=== PATIENT | male | born 1990 | race Caucasian/White ===

== ENCOUNTER 2023-05-02 06:33 | Emergency (ER) | payer OTHER, SELFPAY ==
[2023-05-02 06:36] VITALS: BP 120/79; PULSE 62; RESP 19; TEMP 36.1; O2SAT 98; BMI 30.4
--- NOTE | 2023-05-02 06:49 | EKG12_ITS ---
Test Reason : SYNCOPE Blood Pressure : / mmHG Vent. Rate : 056 BPM Atrial Rate : 056 BPM P-R Int : 118 ms QRS Dur : 092 ms QT Int : 414 ms P-R-T Axes : 016 040 030 degrees QTc Int : 399 ms Sinus bradycardia with sinus arrhythmia Otherwise normal ECG Confirmed by Amari Sepulveda ([id number]), avid editor PRABHA FRAZIER ([id number]) on 05/05/2023 8:58:36 AM Referred By: Confirmed By:Amari Sepulveda
--- NOTE | 2023-05-02 06:49 | EX.ED.DYSGE1 ---
HPI History of Present Illness Chief Complaint: Syncope Detail of Chief Complaint: Syncope Informant: patient Narrative Narrative: Patient presents with a syncopal episode this morning. Patient states that he got up to urinate and while urinating started feeling lightheaded and dizzy and thinks he passed out for up to 10 seconds or so. Patient came to and finished urinating and walk to the steps and his bedrooms upstairs. He felt woozy so he sat on the steps and he thinks he may have passed out again for short time. Patient states he had similar episode happened in the past. Denies recent illness. Denies chest pain or shortness of breath. Currently feels great and has no complaints and wants to go home and go to work. PFSH PFSH Medical History no medical history Home Medications multivitamin (Daily Multi-Vitamin tablet) 1 tab PO DAILY 05/02/23 [History Last Taken Unknown] Allergy/AdvReac Type Severity Reaction Status Date / Time No Known Allergies Allergy Verified 05/02/23 07:29 Social History Smoking Status: Current every day smoker tobacco type: cigarettes ROS ROS ED Review of Systems ROS Unobtainable: other Constitutional Constitutional ED: Reports lethargy; Denies chills, fever(s), sweats or weight loss Eyes Eyes: Denies blurry vision, change in vision or diplopia ENT ENT ED: Denies rhinorrhea or sore throat Cardiovascular Cardiovascular: Denies chest pain, orthopnea or racing heartbeat Respiratory/Chest Respiratory/Chest: Denies cough, dyspnea, dyspnea on exertion, orthopnea or sputum Gastrointestinal Gastrointestinal: Denies abdominal pain, diarrhea, nausea or vomiting Genitourinary Genitourinary ED: Denies dysuria, hematuria or urinary frequency Musculoskeletal Musculoskeletal: Denies arthralgias, back pain, myalgias or neck pain Integumentary Denies abscess, Abrasions or rash Neurologic Neurologic: Reports other Details: Syncope ; Denies headache(s) or weakness Psychiatric Psychiatric: Denies anxiety, depression or suicidal thoughts Endocrine Endocrinology: Denies polydipsia, polyphagia or polyuria Hematologic/Lymphatic Hematologic/Lymphatic: Denies easy bleeding, easy bruising or lymphadenopathy Allergic/Immunologic Allergic/Immunologic ED: Denies mouth swelling, tongue swelling or urticaria EXAM Physical Exam Const Vital Signs: 05/02/23 06:36 05/02/23 07:00 05/02/23 07:29 Temperature 96.9 F L 97.2 F L Temperature Source Oral Pulse Rate 62 81 Pulse Rate [Lying] 58 L Pulse Rate [Sitting (for 1 minute prior to obtaining)] 62 Pulse Rate [Standing (for 1 minute prior to obtaining)] 79 Respiratory Rate 19 H 16 Blood Pressure 120/79 111/78 Blood Pressure [Lying] 112/68 Blood Pressure [Sitting (for 1 minute prior to obtaining)] 114/73 Blood Pressure [Standing (for 1 minute prior to obtaining)] 123/81 H Blood Pressure Mean 92 89 Blood Pressure Mean [Lying] 82 Blood Pressure Mean [Sitting (for 1 minute prior to obtaining)] 86 Blood Pressure Mean [Standing (for 1 minute prior to obtaining)] 95 Pulse Ox 98 98 Oxygen Delivery Method Room Air Positive well nourished and well developed General Appearance ED: well developed and NAD HEENT Reports TM's clear and moist mucous membranes normocephalic and atraumatic; Negative for trauma or tenderness Tympanic Membrane ED: Yes TM's clear Eyes PERRL and EOMs intact bilaterally General Eye ED: Negative for pale conjunctiva or scleral icterus Neck no lymphadenopathy, supple and no JVD General: Negative for tenderness Chest Wall inspection of chest normal and palpation of chest normal Chest: Negative for tenderness Resp normal respiratory effort and clear to auscultation bilaterally Effort and Inspection: Negative for respiratory distress or pain with movement Auscultation: Negative for rhonchi, wheezes or diminished lung sounds Cardio regular rate, regular rhythm, S1 normal heart sound, S2 normal heart sound and no murmurs Peripheral Pulses: pulses 2+ throughout GI normal to inspection, nondistended, normoactive bowel sounds, soft to palpation, non-tender, non-distended and no masses Back/Spine no CVA tenderness and no thoracic nor lumbar tenderness Extremity normal to inspection General Extremety ED: Negative for edema General Extremity: Negative for edema Neuro oriented x3, CN's II-XII intact bilaterally, no sensory deficits noted and gait normal Sensorium / Orientation: awake, alert, oriented to person, oriented to place and oriented to time Motor Exam: strength 5/5 throughout and strength abnormal Psych mental status grossly normal Skin no rashes or lesions noted and no wounds MDM MDM MDM Narrative Medical decision making narrative: Patient presents with syncope x 2 likely related to micturition and vasovagal type event. Clinically looks well. Patient will have an IV line established. Orthostatics will be obtained. CBC with differential obtained showed a white count of 4.8 with hemoglobin of 17 and platelet count of 164. Orthostatic vital signs were negative. Chemistries unremarkable. Patient clinically looks well. Will discharge to home. Suspect vasovagal episode related to micturition. Lab Data Attestation: I reviewed the patient's lab results. Labs: Laboratory Results - last 24 hr 05/02/23 06:45 WBC 4.8 RBC 5.04 Hgb 17.4 H Hct 49.3 MCV 97.8 H MCH 34.5 H MCHC 35.3 RDW Std Deviation 42.6 RDW Coeff of Sasha 11.9 Plt Count 164 MPV 9.0 Immature Gran % (Auto) 0.400 Neut % (Auto) 55.0 Lymph % (Auto) 33.0 [place] % (Auto) 9.5 Eos % (Auto) 1.7 Baso % (Auto) 0.4 Absolute Neuts (auto) 2.6 Absolute Lymphs (auto) 1.57 Nucleated RBC % 0 Sodium 140 Potassium 4.3 Chloride 106 Carbon Dioxide 30.0 Anion Gap 4 L BUN 14 Creatinine 1.13 Estim Creat Clear Calc 112.59 Est GFR (MDRD) Af Amer 97 Est GFR (MDRD) Non-Af 80 BUN/Creatinine Ratio 12.4 Glucose 115 H Calcium 9.1 EKG Initial EKG: Attestation: I personally reviewed and interpreted this EKG as follows: Comments: Sinus rhythm with ventricular rate of 56 bpm with no acute ST segment changes Discharge Plan Triage Chief Complaint: Syncope ED Provider: Daisy Pardo Dx/Rx/DC Orders Clinical Impression: Syncope, vasovagal Instructions: ED Fainting, Vagal Reaction Prescriptions: No Action multivitamin [Daily Multi-Vitamin] Tablet 1 tab PO DAILY Primary Care Provider: Care Physician,No Primary Referrals: Dave Cabrera MD [Non-Staff] - 5-7 Days Disposition Disposition: Home, Self Care Discharge Date/Time: 05/02/23 07:30
[2023-05-02 07:00] VITALS: BP 112/68; BP 114/73; BP 123/81; PULSE 58; PULSE 62; PULSE 79
[2023-05-02 07:00] LABS: Absolute Lymphocyte Count 1.57 X10^3/uL (0.83-4.51); Absolute Neutrophil Count 2.6 X10^3/uL (2.0-7.7); Basophil# 0.02 X10^3/uL; Basophil% 0.4 % (0-1); Eosinophil# 0.08 X10^3/uL; Eosinophils% 1.7 % (0-5); Hematocrit 49.3 % (40-54); Hemoglobin 17.4 g/dL (13.0-16.5); Lymphocyte # 1.57 X10^3/ul (0.83-4.51); Mean Corp Hgb Conc 35.3 g/dL (32-36); Mean Corpuscular Hgb 34.5 pg (27.0-32.0); Mean Corpuscular Volume 97.8 fL (80-94); Monocyte# 0.45 X10^3/uL; Monocyte% 9.5 % (0-10); NRBC Flagged by Analyzer 0 % (0-5); Neutrophil # 2.62 X10^3/uL (2.7-7.7); Platelet Count 164 K/mm3 (150-450); RBC Distribution Width CV 11.9 % (11.6-14.6); RBC Distribution Width SD 42.6 fl (35.1-43.9); Red Blood Count 5.04 M/mm3 (4.6-6.2); White Blood Count 4.8 K/mm3 (4.4-11.0)
[2023-05-02] MEDS: 0.9% Normal Saline (1000mL) 1,000 ML 1000 ML IV (07:03)
[2023-05-02 07:13] LABS: Anion Gap 4 (5-15); BUN 14 mg/dL (7-18); BUN/Creat Ratio 12.4 RATIO (10-20); Calcium,Total 9.1 mg/dL (8.5-10.1); Chloride 106 mmol/L (98-107); Creatinine, Serum 1.13 mg/dL (0.70-1.30); EST Glomerular Filtration Rate 80 mL/min (>60); Est Glom Filt Rate - Afr Amer 97 mL/min (>60); Estimated Creatinine Clearance 112.59 ml/min; Glucose 115 mg/dL (74-106); Potassium 4.3 mmol/L (3.5-5.1); Sodium Level 140 mmol/L (136-145)
[2023-05-02 07:29] VITALS: BP 111/78; PULSE 81; RESP 16; TEMP 36.2; O2SAT 98
== END 2023-05-02 07:30 | disposition home or self-care (01) ==
LOC: ED 07:25
PROVIDERS: Emergency Provider Emergency Medicine; Visit Provider Emergency Medicine
DX: R55 Syncope and collapse (principal); F17.210 Nicotine dependence, cigarettes, uncomplicated
CPT/HCPCS: 80048; 85025; 93005; 99283; J7030; A4216

== ENCOUNTER 2024-08-22 13:25 | Emergency (ER) | payer OTHER, SELFPAY ==
[2024-08-22 13:26] VITALS: BP 138/87; PULSE 87; RESP 18; TEMP 36.8; O2SAT 100
--- NOTE | 2024-08-22 13:40 | RAD_ITS ---
PROCEDURE: ELBOW MIN 3 VIEWS 08/22/2024 REASON FOR EXAM: TRAUMA TECHNIQUE: ELBOW MIN 3 VIEWS COMPARISON: None FINDINGS: Bones: No fracture. Joints: Normal alignment. Soft tissues: Soft tissue swelling. Other: RAD/Elbow min 3 Views IMPRESSION: No acute abnormality is seen. Reading Location: [place] [id number]
--- NOTE | 2024-08-22 13:40 | RAD_ITS ---
PROCEDURE: WRIST MIN 3 VIEWS 08/22/2024 REASON FOR EXAM: TRAUMA TECHNIQUE: WRIST MIN 3 VIEWS COMPARISON: None FINDINGS: Bones: Fracture through the midshaft of the radius. Joints: There is widening of the distal radioulnar joint. Soft tissues: Soft tissue swelling. Other: RAD/Wrist min 3 Views IMPRESSION: Widening of the distal radioulnar joint. Fracture through the midshaft of the radius. Soft tissue swelling. Reading Location: [place] [id number]
--- NOTE | 2024-08-22 13:40 | RAD_ITS ---
PROCEDURE: FOREARM 2 VIEWS 08/22/2024 REASON FOR EXAM: INJURY TECHNIQUE: FOREARM 2 VIEWS COMPARISON: None FINDINGS: Bones: Transverse fracture through the midshaft of the radius with overriding of the fracture fragments. Joints: Normal alignment at the wrist and elbow. Soft tissues: Soft tissue swelling. Other: RAD/Forearm 2 Views IMPRESSION: Transverse fracture through the midshaft of the radius with overlapping of the fracture fragments. Soft tissue swelling. Reading Location: [place] [id number]
--- NOTE | 2024-08-22 13:40 | RAD_ITS ---
PROCEDURE: HAND MIN 3 VIEWS 08/22/2024 REASON FOR EXAM: TRAUMA Pain following injury. TECHNIQUE: HAND MIN 3 VIEWS COMPARISON: None FINDINGS: Bones: No fracture. Joints: Normal alignment. Soft tissues: Soft tissues are unremarkable. Other: RAD/Hand Min 3 Views IMPRESSION: NEGATIVE HAND SERIES Reading Location: [place] [id number]
--- NOTE | 2024-08-22 14:22 | CONS.ORTHO ---
HPI Consult Data Date of Consult: 08/22/24 HPI Narrative HPI Narrative: MADAY TRINIDAD, is a 33 M who presents with midshaft radius fracture isolated a large branch fell on it today. Called by the emergency department provider. No signs of or concerns for compartment syndrome or crush injury. Wants to arrange for follow-up. [facility] Medical History (Updated 08/22/24 @ 14:22 by Abilio Sky MD) Fracture of shaft of left radius Home Medications ?Medication ?Instructions ?Recorded ?Last Taken ?Type NK 08/22/24 Unknown History Allergy/AdvReac Type Severity Reaction Status Date / Time No Known Allergies Allergy Verified 08/22/24 13:29 Social History Smoking Status: Current every day smoker tobacco type: cigarettes Vital Signs Vital Signs Vital Signs: 08/22/24 13:26 08/22/24 13:26 Temperature 98.2 F Temperature Source Oral Pulse Rate 87 Respiratory Rate 18 Respiratory Effort Normal Non-Labored Respiratory Depth Normal Respiratory Pattern Normal Blood Pressure 138/87 H Blood Pressure Mean 104 Pulse Ox 100 Oxygen Delivery Method Room Air Weight Weight: 215 lb 9 oz Body Mass Index (BMI) 30.0 Imaging Radiology Impression Elbow X-Ray 08/22/24 13:40 IMPRESSION: No acute abnormality is seen. [facility] Forearm X-Ray 08/22/24 13:40 IMPRESSION: Transverse fracture through the midshaft of the radius with overlapping of the fracture fragments. Soft tissue swelling. Reading Location: [facility] Hand X-Ray 08/22/24 13:40 IMPRESSION: NEGATIVE HAND SERIES Reading Location: [facility] Wrist X-Ray 08/22/24 13:40 IMPRESSION: Widening of the distal radioulnar joint. Fracture through the midshaft of the radius. Soft tissue swelling. Reading Location: [facility] Assessment & Plan Assessment/Plan (1) Fracture of shaft of left radius: PLAN: 33-year-old man isolated midshaft radial shaft fracture. No signs or concern from the emergency department provider for compartment syndrome although the patient has been warned as to the signs of that. Recommend for splinting of the forearm pain control and follow-up with myself in the office within this week or Thursday would be adequate thanks for the consult. I thinkThis injury indicated for ORIF.
--- NOTE | 2024-08-22 15:23 | EDS_ITS ---
HPI History of Present Illness Chief Complaint: Trauma Narrative Narrative: [id number] presents left forearm injury. Injury occurred at work. He states next to a skid vehicle that was moving logs. States this hit a tree which caused the fall hitting directly his left forearm. No other injuries. He is not on any blood thinners. No history of fractures. [facility] Medical History Fracture of shaft of left radius Home Medications ?Medication ?Instructions ?Recorded ?Last Taken ?Type hydrocodone-acetaminophen 5-325mg 1 tab PO Q6H PRN PRN Pain 3 days 08/22/24 Unknown Rx 5mg-325mg #12 TABLETS Allergy/AdvReac Type Severity Reaction Status Date / Time No Known Allergies Allergy Verified 08/22/24 13:29 Social History Smoking Status: Current every day smoker tobacco type: cigarettes ROS ROS ED Constitutional Constitutional ED: Denies fever(s) Cardiovascular Cardiovascular: Denies chest pain Respiratory/Chest Respiratory/Chest: Denies cough Gastrointestinal Gastrointestinal: Denies diarrhea or vomiting Musculoskeletal Musculoskeletal: Reports none and other Details: Left forearm pain. Integumentary Denies rash or wounds Neurologic Neurologic: Denies weakness EXAM Physical Exam Const Vital Signs: 08/22/24 13:26 08/22/24 13:26 Temperature 98.2 F Temperature Source Oral Pulse Rate 87 Respiratory Rate 18 Respiratory Effort Normal Non-Labored Respiratory Depth Normal Respiratory Pattern Normal Blood Pressure 138/87 H Blood Pressure Mean 104 Pulse Ox 100 Oxygen Delivery Method Room Air Positive well nourished and well developed Constitutional Narrative: GCS 15. General Appearance ED: well developed and NAD HEENT Reports moist mucous membranes normocephalic and atraumatic Eyes General Eye ED: Yes normal appearance of both eyes Neck full ROM Chest Wall inspection of chest normal and palpation of chest normal Chest: Negative for tenderness Resp normal respiratory effort and normal air movement Effort and Inspection: symmetric chest movement; Negative for respiratory distress Cardio regular rate, regular rhythm and no murmurs Peripheral Pulses: pulses 2+ throughout GI normal to inspection, nondistended, normoactive bowel sounds and non-tender Palpation: Negative for guarding or rebound tenderness present Extremity Extremity Narrative: Left upper extremity no shoulder or elbow tenderness. There is redness proximal forearm abrasion down the forearm with skin be intact pain to palpation mid to distal radius. No snuffbox tenderness. There is swelling to the hand. No bony tenderness. Soft compartments. General Extremety ED: Yes edema and tenderness General Extremity: edema Neuro oriented x3 and no sensory deficits noted Sensorium / Orientation: awake and alert Skin no rashes or lesions noted and no wounds MDM MDM MDM Narrative Medical decision making narrative: Interventions / MDM: Differential diagnosis: Fracture, contusion Diagnosis considered but do not suspect: No clinical compartment syndrome. My EKG interpretation: N/A Imaging independently reviewed and interpreted by myself: 3 view left elbow: No fracture noted. 2 view left forearm: Comminuted transverse fracture Distal radius with displacement. 3 view left wrist: No fracture. 3 view left hand: No fracture. External documents reviewed: N/A Test considered but not ordered:N/A ED course: Nursing treatment ordered imaging studies. Isolated injury to the forearm. This all reviewed has displaced radius shaft fracture mid to distal radius. Comminuted. No ulnar fracture. Patient declines any pain medicines. Discussed with orthopedist on-call Dr. Sky, fracture area is not reducible. Recommended AP splint. He will call the office tomorrow to be seen for planned surgical intervention. Splinting: Verbal consent. Nylon sleeve was placed, Kerlix padding was placed through the forearm and hand. 4 inch plaster AP splint was placed to the proximal forearm. Secured with Michael wrap. Neurovascularly intact post splinting. Patient continue declined any pain medicines however excepted a prescription for Story to his pharmacy use at night. Discussed signs of compartment syndrome for return otherwise he will call orthopedics for follow-up tomorrow. Sling provided for comfort. All questions were answered. Re-evaluation: stable Disposition discussed with patient/family/significant other: Patient Case discussed with consulting clinician: Orthopedic service. This note was generated with [employer] dictation software. It may contain incorrect words, spelling, and punctuation that were not noted in checking the note before signing. Radiography Diagnostic Testing: Clinical Impression(s) from Imaging Studies Elbow X-Ray 08/22/24 13:40 IMPRESSION: No acute abnormality is seen. Reading Location: [facility] Forearm X-Ray 08/22/24 13:40 IMPRESSION: Transverse fracture through the midshaft of the radius with overlapping of the fracture fragments. Soft tissue swelling. Reading Location: [facility] Hand X-Ray 08/22/24 13:40 IMPRESSION: NEGATIVE HAND SERIES Reading Location: [facility] Wrist X-Ray 08/22/24 13:40 IMPRESSION: Widening of the distal radioulnar joint. Fracture through the midshaft of the radius. Soft tissue swelling. Reading Location: [facility] Discharge Plan Triage Chief Complaint: Trauma ED Provider: Madhu Otriz Dx/Rx/DC Orders Clinical Impression: Fracture of shaft of left radius, Injury of left forearm, Work related injury Instructions: ED Fracture, Upper Extremity Prescriptions: New hydrocodone-acetaminophen 5-325 mg tablet 1 tab PO Q6H PRN PRN (Reason: Pain) 3 Days Qty: 12 0RF Primary Care Provider: Care Physician,No Primary Referrals: Abilio Sky MD [Med Staff - Active Staff] - 1 Day Care Physician,No Primary [Primary Care Provider] - Activity Restrictions/Additional Instructions: Isolated radius fracture. Maintain splint sling for comfort. Discussed with Dr. Sky, call office to be seen tomorrow for planned surgery. If you develop any worsening pain numbness to the hand and fingers, return immediately to the ED for reevaluation. Print Language: Croatian Disposition Disposition: Home, Self Care
[2024-08-22 15:26] VITALS: BP 132/84; PULSE 76; RESP 18; O2SAT 99
[2024-08-22 15:49] VITALS: BP 132/84; PULSE 76; RESP 18; TEMP 36.6; O2SAT 99
== END 2024-08-22 15:49 | disposition home or self-care (01) ==
PROVIDERS: Emergency Provider Emergency Medicine; Visit Provider Emergency Medicine
DX: S52.322A Displaced transverse fracture of shaft of left radius, initial encounter for closed fracture (principal); W20.8XXA Other cause of strike by thrown, projected or falling object, initial encounter; Y99.0 Civilian activity done for income or pay; F17.210 Nicotine dependence, cigarettes, uncomplicated
CPT/HCPCS: 29125; 73080; 73090; 73110; 73130; 99283

== ENCOUNTER 2024-08-30 08:48 | Day surgery (SDC) | payer SELFPAY, OTHER ==
[2024-08-30] VITALS (8 sets, daily range): BP systolic 112–138; BP diastolic 78–92; PULSE 64–81; RESP 16; TEMP 36.2–36.4; O2SAT 93–99; BMI 29.7
--- NOTE | 2024-08-30 09:08 | PRE.ANES_ITS ---
ASA Classification* ASA Classification ASA Classification: 2 Assessment & Plan Anesthesia* Anesthesia Assessment Anesthesia Assessment: Discussed sedation and/or anesthesia options, risks, benefits, and alternatives with patient/parents/legal guardian/POA. Questions invited. The patient/parents/legal guardian/POA seems to understand and agrees to proceed with anesthesia plan. Reviewed the physical assessment, medical history, allergy history and patient home medications list prior to surgery/procedure/anesthetic and documented any changes. Performed airway and anesthesia risk assessments. Anesthesia Type Anesthesia Type: General and Block (Left upper extremity PNB with IV GA) History Source History Obtained from:: Patient Anesthesia Focused Assessment* Airway Assessment Mouth opens: >3 cm Mallampati Score: II Labs Anesthesia Preop lab: CBC WBC 4.8 K/mm3 (4.4-11.0) 05/02/23 06:45 05/02/23 RBC 5.04 M/mm3 (4.6-6.2) 05/02/23 06:45 05/02/23 Hgb 17.4 g/dL (13.0-16.5) H 05/02/23 06:45 4 Hct 49.3 % (40-54) 05/02/23 06:45 05/02/23 Plt Count 164 K/mm3 (150-450) 05/02/23 06:45 05/02/23 CHEMISTRY Potassium 4.3 mmol/L (3.5-5.1) 05/02/23 06:45 05/02/23 Sodium 140 mmol/L (136-145) 05/02/23 06:45 05/02/23 BUN 14 mg/dL (7-18) 05/02/23 06:45 05/02/23 Creatinine 1.13 mg/dL (0.70-1.30) 05/02/23 06:45 05/02/23 Glucose 115 mg/dL (74-106) H 05/02/23 06:45 05/02/23 COAG Pre-Assessment Diagnosis/Proposed Procedure Planned Operative Procedure(s): (L) Left radius open reduction internal fixation Anesthesia 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 When Was Last Pacemaker Check QUESTION #4 FULL TEXT: You/Your Family Experience fever (hyperthermia) with Anesthesia Last Oral Intake Last Oral intake: Last Oral Intake NPO since Meds taken in AM with sips of water? 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 Female No 08/26/24 09:28 HX of Motion Sickness No 08/26/24 09:28 HX of N/V After Surgery No 08/26/24 09:28 Non-Smoker No 08/26/24 09:28 Duration of Surgery greater Yes 08/26/24 09:28 than 60 minutes Number of Risk Factors 1 08/26/24 09:28 PONV Score Low Risk 08/26/24 09:28 Height & Weight Height & Weight: Anesthesia: Height & Weight Height 5 ft 11 in 08/29/24 07:57 Weight: 98.883 kg 08/29/24 07:57 Respiratory Assessment Respiratory Assessment - machinist/machine builder: Respiratory Tract Infection Hx - machinist/machine builder Hx Respiratory Tract Infection No 08/26/24 09:28 STOP Sleep Apnea STOP Sleep Apnea - machinist/machine builder: STOP Sleep Apnea - machinist/machine builder Hx Hypertension No 08/26/24 09:28 Hx Sleep Apnea No 08/26/24 09:28 CPAP BIPAP Do you snore loudly (louder Yes 08/26/24 09:28 than talking or can be heard Do you often feel tired/ No 08/26/24 09:28 fatigued/ sleepy during daytime? Has anyone observed you stop No 08/26/24 09:28 breathing during sleep? STOP Results Negative 08/26/24 09:28 QUESTION #5 FULL TEXT : Do you snore loudly (louder than talking or can be heard through closed doors)? 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 Specify any problems Hx of Preganancy in last 3 N/A 08/26/24 09:28 Months Nurse Filling Out Transfusion MGRIFFITH 08/26/24 09:28 & Questions: Date: 08/26/24 08/26/24 09:28 Time: 08/26/24 09:28 Patient unable to answer at this time (ie. confused, unrespo /Reproduction History /Reproductive History - machinist/machine builder: /Reproductive Hx- machinist/machine builder Hx Now Gestational Age (in weeks): EDC: Hx Hx Para Hx Section SAB Active Medications Active Medications: Current Medications Generic Name Dose Route Start Last Admin Trade Name Freq PRN Reason Stop Dose Admin Lactated Ringer's 1,000 mls @ 15 mls/hr 08/30/24 09:00 IV .Q48H [facility] PFSH Medical History (Updated 08/30/24 @ 00:01 by Corky Langford) Alcohol use Blackout Smoker Leg cramps Fracture of shaft of left radius Home Medications Medication Instructions Recorded Last Taken Type hydrocodone-acetaminophen 5-325mg 1 tab PO Q6H PRN PRN Pain 3 days 08/22/24 Unknown Rx 5mg-325mg #12 TABLETS ibuprofen 200 mg capsule 200 mg PO Q6H PRN pain 08/25 Unknown History multivitamin 1 tab PO DAILY 08/26/24 Unkn own History Allergy/AdvReac Type Severity Reaction Status Date / Time No Known Allergies Allergy Verified 08/26/24 09:26 Surgical History (Updated 08/26/24 @ 09:28 by Calista Holm) No significant past surgical history Social History Smoking Status: Current every day smoker tobacco type: cigarettes Review of Systems (Anesthesia) ROS Narrative System reviewed and no additional complaints, except as documented.
[2024-08-30] MEDS: Lactated Ringers 1,000 ML 15 ML IV (09:28)
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
--- NOTE | 2024-08-30 10:55 | RAD_ITS ---
PROCEDURE: FOREARM 2 VIEWS 08/30/2024 REASON FOR EXAM: LEFT RADIUS OPEN REDUCTION INTERNAL FIXATION TECHNIQUE: FOREARM 2 VIEWS COMPARISON: 08/22/2024 FINDINGS: 2 spot fluoroscopic intraoperative views show the patient undergoing ORIF, for repair of comminuted mid shaft radial fracture. Orthopedic plate and screws are intact. Near anatomic bony alignment. No intraoperative complication noted. RAD/Forearm 2 Views IMPRESSION: Remarkable intraoperative appearance. Reading Location: [facility]
--- NOTE | 2024-08-30 11:59 | PCM.OPRPT ---
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 Programs Manager: Agustín Tasks completed by nurse first aid: Retracting Type of Anesthesia: Block,Regional and General RN Documented Start/Stop Times: Operation Date: 08/30/24 10:30 Case Time Into Pre-Op 08/30/24 08:51 Anesthesia Start 08/30/24 10:56 Into Room 08/30/24 10:56 Procedure Start 08/30/24 11:13 Procedure End 08/30/24 11:58 Procedure Start Time: 11:13 Procedure Stop Time: 11:58 Select all DRAINS/GRAFTS/IMPLANTS that apply: Implanted device Implanted device details: Synthes 8 hole 3.5 mm LCDC plate Estimated Blood Loss: 20 Specimen collected: No Description of surgery: Patient brought to the operating room theater. Placed supine on the table. General anesthesia induced. 2 g IV Ancef administered prior to the start of the procedure. Hand table to the patient's left side. Bed turned to 90 degrees. Tourniquet applied to the upper extremity 18 inch and appropriately padded. All bony prominences padded. SCDs on the legs. Upper extremity prepped and draped in the usual sterile fashion allowing over 3 minutes drying time prior to draping. Preoperative timeout performed to confirm the site patient the surgery. Began by elevating the limb inflating the tourniquet to 250 mmHg. Made a volar incision over the fracture site in the mid forearm overlying the FCR tendon. Carried the dissection down through skin and subcutaneous tissue achieved meticulous hemostasis. Identified the interval between the brachioradialis and the FCR. Identified the radial artery. Carefully ligated crossing vessels. Retracted this laterally. Identified the fracture site elevated the forearm musculature from the forearm at the volar fracture site. Did not have to release the PT. Carefully cleared away any interposed hematoma and fracture periosteum. Achieved a preliminary reduction using direct manipulation and alligator forceps. Chose a Synthes LCDC 3.5 mm plate 8 holes placed this on the volar aspect of the bone. There was butterfly fragment so I was not able to compress across the fracture site. I placed 3 screws 3.5 mm cortical screws 3 screws on each side of the fracture site this achieved good reduction and stable fixation. Bone was out to length appropriately reduced no malrotation. Full rotation of the forearm full flexion extension of the elbow no clicking catching as well as stable distal radial ulnar joint in supination pronation and neutral. I took final AP and lateral radiographs to ensure appropriate placement on the bone of the plate and good reduction of the fracture. Tourniquet let down meticulous hemostasis achieved wound thoroughly irrigated. Subcutaneous tissue closed with 2-0 Vicryl suture and skin with 3-0 Monocryl. Skin cleaned with wet and dry dressing followed application of Steri-Strips Adaptic 4 x 4 gauze ABD dressing and a loosely wrapped Michael bandage. Patient woken up from general anesthetic transferred off the operating room table and taken to postanesthetic care unit in stable condition. All sponge needle and instrument counts were correct no complications plan for the patient discharge home today no heavy lifting beyond 1 pound gentle range of motion of the upper extremity and follow-up in the office in 2 days time leave the dressing on until follow-[place]. [place] [id number] Surgical Findings: As above Complications Complications: No Admit VTE Documentation VTE Present on Admission: No VTE Mechan Device Prophylaxis: SCD's VTE Pharm Prophylaxis ordered?: No Reason prophylaxis not ordered: Treatment Not Indicated
--- NOTE | 2024-08-30 12:08 | DCINST_ITS ---
Discharge Instructions Diet Discharge Diet: No restrictions Activity Ice area for (Minutes): 10 Lifting Restrictions: no lifting over 1 pound 6 weeks Keep extremity elevated above heart level: Operative Extremity Additional Activity Instructions:: ok for gentle ROM of the arm hand and elbow Dressing / Incision Call your doctor if your incision/area has: Continuous Slow Oozing, Sudden Increased Bleeding, Increased Pain/ Swelling, Increased Redness, Foul Smelling Discharge and Swelling at the incision site Call your doctor if you observe: Fever of 101 or Higher, Coldness, Increased Pain and Numbness or Tingling Change Dressing in: leave in place till F/U Cleanse incision/area with: Do not get Incision Wet Follow Up Care Please Follow Up With: Abilio Sky MD When: 2 days Test Results: Test results from this visit will be discussed in further detail at your follow- up appointment, if applicable. Discharge Plan Admission Attending Provider: Abilio Sky Primary Care Provider: Care Physician,No Primary Instructions Patient Instructions: Distal Radius Fx Print Language: Kazakh Discharge Orders/Prescriptions Prescriptions: New oxycodone-acetaminophen [Endocet] 5-325 mg tablet 1 tab PO Q4H MDD 4 PRN (Reason: pain) 3 Days Qty: 20 0RF No Action ibuprofen 200 mg capsule 200 mg PO Q6H PRN (Reason: pain) multivitamin Tablet 1 tab PO DAILY hydrocodone-acetaminophen 5-325 mg tablet 1 tab PO Q6H PRN PRN (Reason: Pain) 3 Days Qty: 12 0RF Referrals / Follow Up: Abilio Sky MD [Med Staff - Active Staff] - Care Physician,No Primary [Primary Care Provider] - Disposition Disposition (needs filled in before D/C Order can be placed): Home, Self Care
--- NOTE | 2024-08-30 12:11 | PCM.POST.ANE ---
Anesthesia: Postop Eval I Current Vital Signs Temperature: 97.3 F Pulse Rate: 81 Blood Pressure: 122/92 Respiratory Rate: 16 Pulse Ox: 94 Assessment Airway patent: Yes Spontaneous unlabored respirations: Yes nausea: No Vomiting: No Anesthesia Complication: No Fluid Hydration Crystalloid volume administer (ml): 1,000 Total IV fluid infused: 1,000 Progress Note Anesthesia document: Postop Eval 1 completed: Yes
--- NOTE | 2024-08-30 12:34 | POSTOPAN2_ITS ---
Anesthesia Postop Eval I Sum Postop Eval Completion status Anesthesia document: Postop Eval 1 completed: Yes Anesthesia Postop Eval I Summary Anesthesia Postop Eval I Summary: Anesthesia Postop Eval I: Assessment Summary Airway patent Yes 08/30/24 12:11 CLINICAL APPEALS SPECIALIST.[email or web address] Spontaneous unlabored Yes 08/30/24 12:11 CLINICAL APPEALS SPECIALIST.TNES respirations Mental status nausea No 08/30/24 12:11 CLINICAL APPEALS SPECIALIST.TNES Vomiting No 08/30/24 12:11 CLINICAL APPEALS SPECIALIST.TNES Anesthesia Postop Eval I: Fluid Summary Crystalloid volume administer 1,000 08/30/24 12:11 CLINICAL APPEALS SPECIALIST.TNES (ml) Colloids volume administered ( ml) Blood Product volume administered (ml) Total IV fluid infused 1,000 08/30/24 12:11 CLINICAL APPEALS SPECIALIST.TNES Anesthesia Postop Eval I: Summary Notes Anesthesia Complication No 08/30/24 12:11 CLINICAL APPEALS SPECIALIST.TNES Anesthesia Complication Comment: Post-operative progress note Anesthesia: Postop Eval II Evaluation Mental status: Awake and Calm Pain Level: 0 nausea: No Vomiting: No Progress Note Post-operative progress note: Excellent analgesia with Left Supraclavicular PNB Complications Anesthesia Complication: No
--- NOTE | 2024-08-30 12:34 | PCM.POSTANE2 ---
Anesthesia Postop Eval I Sum Postop Eval Completion status Anesthesia document: Postop Eval 1 completed: Yes Anesthesia Postop Eval I Summary Anesthesia Postop Eval I Summary: Anesthesia Postop Eval I: Assessment Summary Airway patent Yes 08/30/24 12:11 INPATIENT CODER.TNES Spontaneous unlabored Yes 08/30/24 12:11 INPATIENT CODER.TNES respirations Mental status nausea No 08/30/24 12:11 INPATIENT CODER.TNES Vomiting No 08/30/24 12:11 INPATIENT CODER.TNES Anesthesia Postop Eval I: Fluid Summary Crystalloid volume administer 1,000 08/30/24 12:11 INPATIENT CODER.TNES (ml) Colloids volume administered ( ml) Blood Product volume administered (ml) Total IV fluid infused 1,000 08/30/24 12:11 INPATIENT CODER.TNES Anesthesia Postop Eval I: Summary Notes Anesthesia Complication No 08/30/24 12:11 INPATIENT CODER.TNES Anesthesia Complication Comment: Post-operative progress note Anesthesia: Postop Eval II Evaluation Mental status: Awake and Calm Pain Level: 0 nausea: No Vomiting: No Progress Note Post-operative progress note: Excellent analgesia with Left Supraclavicular PNB Complications Anesthesia Complication: No
== END 2024-08-30 13:14 | disposition home or self-care (01) ==
LOC: SDC 08:49 → AC 08:50
PROVIDERS: Referring Provider Orthopaedic Surgery Sports Medicine; Visit Provider Orthopaedic Surgery Sports Medicine
PROC: (CPT 25515; principal; 2024-08-30 10:10)
DX: S52.322A Displaced transverse fracture of shaft of left radius, initial encounter for closed fracture (principal); W20.8XXA Other cause of strike by thrown, projected or falling object, initial encounter; Y99.0 Civilian activity done for income or pay; F17.210 Nicotine dependence, cigarettes, uncomplicated
CPT/HCPCS: 25515; 64415; 01830; 73090; 76000; C1713